=== PATIENT | female | born 1955 | race Caucasian/White ===

== ENCOUNTER 2019-09-26 17:52 | Emergency (ER) | payer OTHER ==
[~2019-09-26] VITALS: Ht 162.6 cm; Wt 93.4 kg
[~2019-09-26 17:52] MED LIST: GEMF600T5 PO; HYDR-5122 PO; LEVO0.083 PO; OMEP20TC12 PO; VIT1CAPS9 PO
[2019-09-26 18:00] VITALS: BP 171/86
--- NOTE | 2019-09-26 18:07 | NUR ---
PT AMBULATED TO ER BED 06
--- NOTE | 2019-09-26 18:11 | NUR ---
C/O SUDDEN ONSET R SIDE NECK PAIN X4 DAYS. PER PT, THE PAIN STARTED ON THE L SIDE AND MOVED OVER TO THE RIGHT OVER THE LAST FEW DAYS. DENIES INJURY .PT AWAKE , ALERT, AFIBRILE , AMBULATORY WITH STEADY GAIT .POSITIVE RT NECK TENDERNESS. HX: HTN , THYROID RX: NONE
--- NOTE | 2019-09-26 18:12 | NUR ---
DR MARQUIS AT BEDSIDE EVALUATING PT.
[2019-09-26] MEDS ORDERED: KETOROLAC 30 MG/ML VIAL IM ONE (18:15)
[2019-09-26] MEDS ORDERED: CYCLOBENZAPRINE 10 MG TAB PO ONE (18:15)
--- NOTE | 2019-09-26 18:30 | NUR ---
PT WENT TO XRAY VIA WHEEL CHAIR.
--- NOTE | 2019-09-26 18:39 | NUR ---
PT BACK FROM [facility]Y VIA WHEELCHAIR.
[2019-09-26] MEDS ORDERED: MORPHINE SULFATE 4 MG/ML SYR IM ONE (18:45)
[2019-09-26 18:55] VITALS: BP 151/81
--- NOTE | 2019-09-26 18:56 | NUR ---
Patient discharged with v/s stable. Written and verbal after care instructions given and explained regarding neck pain. Patient alert, oriented and verbalized understanding of instructions. Ambulatory with steady gait. All questions addressed prior to discharge. ID band removed. Patient advised to follow up with PMD. Rx of flexiril and ibuprofen given. Patient educated on indication of medication including possible reaction and side effects. Opportunity to ask questions provided and answered.
== END 2019-09-26 18:56 | disposition home or self-care (01) ==
LOC: MED 17:52
DX: S16.1XXA Strain of muscle, fascia and tendon at neck level, initial encounter (principal); I10 Essential (primary) hypertension; E07.9 Disorder of thyroid, unspecified; Z88.0 Allergy status to penicillin; X58.XXXA Exposure to other specified factors, initial encounter; Y93.89 Activity, other specified; Y92.89 Other specified places as the place of occurrence of the external cause; Y99.8 Other external cause status
CPT/HCPCS: 72040; 96372; 99284; J1885; J2270; Q0092

== ENCOUNTER 2023-09-06 06:13 | Day surgery (SDC) | payer OTHER ==
[~2023-09-06] VITALS: Ht 165.1 cm; Wt 93.0 kg
[~2023-09-06 06:13] MED LIST changes: +OMEP-278 PO; -OMEP20TC12 PO
[2023-09-06] MEDS ORDERED: fentaNYL citrate 0.05 MG/ML VIAL ONE (07:35)
[2023-09-06] MEDS: fentaNYL citrate 0.05 MG/ML VIAL IVP ONE (07:49)
[2023-09-06] MEDS: LIDOCAINE 2% 100 MG/5 ML UJET TP ONE (07:56)
[2023-09-06] MEDS: MIDAZOLAM 2 MG/2 ML VIAL IVP ONE (08:00)
[2023-09-06] MEDS ORDERED: MIDAZOLAM 2 MG/2 ML VIAL ONE (08:02)
== END 2023-09-06 09:30 | disposition home or self-care (01) ==
LOC: MDS 06:13 → MMU 06:37 → MDS 09:30
PROVIDERS: ATTEND Internal Medicine Gastroenterology
DX: Z12.11 Encounter for screening for malignant neoplasm of colon (principal); Z86.010 Personal history of colon polyps; I10 Essential (primary) hypertension; E07.9 Disorder of thyroid, unspecified; K21.9 Gastro-esophageal reflux disease without esophagitis; E66.9 Obesity, unspecified; Z68.34 Body mass index [BMI] 34.0-34.9, adult; Z88.0 Allergy status to penicillin; Z88.1 Allergy status to other antibiotic agents; Z90.49 Acquired absence of other specified parts of digestive tract; Z90.710 Acquired absence of both cervix and uterus; Z79.899 Other long term (current) drug therapy; Z98.890 Other specified postprocedural states
CPT/HCPCS: 45385; 82948; J2250; J3010